=== PATIENT | female | born 1955 | race Caucasian/White ===

== ENCOUNTER 2019-12-02 21:40 | Inpatient (IN) | payer MEDICAID ==
[~2019-12-02] VITALS: Ht 162.6 cm; Wt 116.0 kg
[~2019-12-02 21:40] MED LIST: AMIT100T2 OR; CILO100T OR; FLUO20CA19 OR; GABA300C10 OR; HYDR25TA4 OR; INCIVEK PO; METF-490 OR; NOR10T GT; OMEP5TAB OR; SEE MED LIST; [UNRECOGNIZED DRUG - CODE] OR; [UNRECOGNIZED DRUG - OTHER]
[2019-12-02] MEDS ORDERED: ACETAMINOPHEN 650 mg PER 20 mL UD PO ONE (22:15)
[2019-12-02 22:53] LABS: Basophils # (auto) 0 10 ^3/uL (0-0.2); Eosinophils # (auto) 0 10 ^3/uL (0-0.8); Eosinophils % (auto) 0.1 % (0.0-7.0); Neutrophils # (auto) 8.8 10 ^3/uL (1.6-8.6)
[2019-12-02 22:56] LABS: Basophils % (auto) 0.1 % (0.0-2.0); Hematocrit 38.9 % (36.0-46.0); Hemoglobin 13.3 g/dL (12.2-16.2); Lymphocytes # (auto) 0.7 10 ^3/uL (0.4-5.4); Lymphocytes % (auto) 6.9 % (10.0-50.0); Mean Corpuscular Hemoglobin 29.1 pg (28.0-32.0); Mean Corpuscular Hgb Conc. 34.3 g/dL (32.0-36.0); Mean Corpuscular Volume 84.9 fL (80.0-100.0); Monocytes # (auto) 0.7 10 ^3/uL (0-1.3); Monocytes % (auto) 6.4 % (0.0-12.0); Neutrophils % (auto) 86.5 % (37.0-80.0); Nucleated Red Blood Cells % 1.1 %; Platelet Count (auto) 49 10^3/uL (140-450); Red Blood Cells 4.59 10^6/uL (4.0-5.20); White Blood Cell 10.1 10^3/uL (4.4-10.8)
[2019-12-02 23:09] LABS: INR 1.31 (0.9-1.15); Partial Thromboplastin Time 27.9 sec (23.64-32.05)
[2019-12-02 23:13] LABS: Albumin 3.1 g/dL (3.4-5.0); Anion Gap 9 (5-15); Blood Urea Nitrogen 19 mg/dL (7-18); Calcium 8.4 mg/dL (8.5-10.1); Carbon Dioxide 21 mmol/L (21-32); Chloride 103 mmol/L (98-107); Glucose 187 mg/dL (74-106); Magnesium 1.3 mg/dL (1.6-2.6); Potassium 3.8 mmol/L (3.5-5.1); Sodium 133 mmol/L (136-145)
[2019-12-02 23:15] LABS: Alanine Aminotransferase 16 U/L (13-56); Aspartate Aminotransferase 27 U/L (15-37); BUN/Creatinine Ratio 15.8; GFR African American 58 mL/min; GFR Non-African American 48 mL/min
[2019-12-02 23:16] LABS: Lactic Acid w/Reflex 2.6 mmol/L (0.4-2.0)
[2019-12-02 23:20] LABS: Alkaline Phosphatase 112 U/L (45-117); Bilirubin, Total 4.2 mg/dL (0.2-1.0); Total Protein 7.7 g/dL (6.4-8.2)
[2019-12-02 23:23] LABS: Blood Alcohol < 3.0 mg/dL (0-5)
[2019-12-03] MEDS ORDERED: SODIUM CHLORIDE 0.9% 1,000 ML IV SCH (03:01)
[2019-12-03] MEDS ORDERED: MORPHINE SULF INJ 2 MG/ML SYRINGE 1ML IV PRN (03:15)
[2019-12-03] MEDS ORDERED: NITROGLYCERIN 0.4 MG SL TAB SL PRN (03:15)
[2019-12-03] MEDS ORDERED: ACETAMINOPHEN 325 MG TAB PO PRN (03:15)
[2019-12-03] MEDS ORDERED: ONDANSETRON HCL 4 MG/2 ML VIAL IV PRN (03:15)
[2019-12-03] MEDS ORDERED: DOCUSATE SOD 100 MG CAP PO PRN (03:15)
[2019-12-03] MEDS ORDERED: DEXTROSE (50%) 50ML SYRG IV PRN (03:15)
[2019-12-03] MEDS ORDERED: ACETAMINOPHEN 500 MG TAB PO PRN (03:15)
[2019-12-03 03:18] LABS: Urine Bacteria MANY /hpf (None Seen); Urine Blood 2+ /uL (Negative); Urine Specific Gravity 1.019 (1.001-1.035); Urine WBC 1263 /hpf (0 - 5); Urine WBC Clumps PRESENT /hpf (None Seen)
[2019-12-03 03:29] LABS: Alcohol, Urine < 3.0 mg/dL (0-10); Amphetamine Screen, Urine NEGATIVE (NEGATIVE); Barbiturate Scree,Urine NEGATIVE (NEGATIVE); Benzodiazephine Screen, Urine NEGATIVE (NEGATIVE); Cannabinoid Screen, Urine NEGATIVE (NEGATIVE); Cocaine Screen, Urine NEGATIVE (NEGATIVE); Opiate Scree,Urine NEGATIVE (NEGATIVE); Phencyclidine Screen, Urine NEGATIVE (NEGATIVE)
[2019-12-03] MEDS: InsuLIN REG 1unit/0.01ml Soln (100units/ml) SC SCH ×4 (04:23→17:52)
[2019-12-03] MEDS: ACCU-CHEK COMFORT CURVE STRIP VI SCH ×4 (04:23→17:52)
[2019-12-03] MEDS ORDERED: ALBUTEROL SULF HFA 90MCG INH 200DOSE IN SCH ×2 (06:00)
[2019-12-03 06:56] LABS: Basophils # (auto) 0 10 ^3/uL (0-0.2); Eosinophils # (auto) 0 10 ^3/uL (0-0.8); Hematocrit 39.6 % (36.0-46.0); Hemoglobin 13.5 g/dL (12.2-16.2); Lymphocytes # (auto) 0.6 10 ^3/uL (0.4-5.4); Mean Corpuscular Hemoglobin 28.9 pg (28.0-32.0)
[2019-12-03 06:59] LABS: Basophils % (auto) 0.3 % (0.0-2.0); Eosinophils % (auto) 0.3 % (0.0-7.0); Lymphocytes % (auto) 7.7 % (10.0-50.0); Monocytes # (auto) 0.7 10 ^3/uL (0-1.3); Monocytes % (auto) 8.2 % (0.0-12.0); Neutrophils # (auto) 6.8 10 ^3/uL (1.6-8.6); Neutrophils % (auto) 83.5 % (37.0-80.0); Nucleated Red Blood Cells % 0.6 %; Platelet Count (auto) 39 10^3/uL (140-450); Red Blood Cells 4.66 10^6/uL (4.0-5.20); Red Cell Distribution Width 16.5 % (11.8-14.3); White Blood Cell 8.1 10^3/uL (4.4-10.8)
[2019-12-03 07:17] LABS: BUN/Creatinine Ratio 20.7; Calcium 8.4 mg/dL (8.5-10.1); Magnesium 1.7 mg/dL (1.6-2.6); Potassium 3.7 mmol/L (3.5-5.1)
[2019-12-03 08:43] VITALS: BP 107/66
[2019-12-03] MEDS ORDERED: ENOXAPARIN SOD 40 MG/0.4 ML SYRINGE SC SCH (10:00)
[2019-12-03] MEDS ORDERED: ASCORBIC ACID 1,000 MG TAB PO SCH (10:00)
[2019-12-03] MEDS ORDERED: ZINC SULFATE 220mg CAP or TAB PO SCH (10:00)
[2019-12-03] MEDS: DOXYCYCLINE 100 MG TAB/CAP PO SCH ×2 (10:31→21:37)
[2019-12-03] MEDS: CHOLECALCIFEROL (VITD3) 1,000IU=25mCg TAB PO SCH (10:31)
[2019-12-03 11:00] VITALS: BP 146/94
--- NOTE | 2019-12-03 11:00 | NUR ---
Telemetry admit from [facility] ROB[facility] admitted to Telemetry unit after SBAR received. Patient oriented to CAROLYNE HUBBARD, RN primary RN, unit, room, bed, and unit policies regarding patient care and visiting hours. Patient now on continuous telemetry monitoring, tele box # 17 and telemetry reading on arrival to unit is SR. Patient placed on bedside oxygen, weighed by bedscale and encouraged to call if they need something. All questions and concerns addressed, patient verbalized understanding.
[2019-12-03] MEDS ORDERED: cefTRIAXone 1GM/50ML D5W 50 ML IV ONE (11:30)
[2019-12-03 12:00] VITALS: BP 146/94
--- NOTE | 2019-12-03 15:58 | NUR ---
Report given to Nelda HARRIS. Patient transferred to room 212b at this time. Patient covid results negative. No distress, sob, or pain noted at time of departure.
--- NOTE | 2019-12-03 16:08 | NUR ---
Patient received from COVID unit Assumed care of patient, awake and alert. No S/S of distress/SOB or pain. Bed is set in lowest locked position with side rails up x 2 for safety and call light is within reach. Snyder catheter is in place hung below bladder and is draining dark straw colored fluid into bag.
[2019-12-03 16:50] VITALS: BP_SYST 128; BP_SYST 141; BP_DIAS 66; BP_DIAS 79
--- NOTE | 2019-12-03 19:53 | NUR ---
1946. lab call. santa. blood culture grew gram positive rods. call placed to hospitalist speech therapist early intervention.
--- NOTE | 2019-12-03 19:57 | NUR ---
Hospitalist called back. Noted patient is currently on Rocephin and vibramicin.. Noted these will provide adequate coverage for the Gram Negative Rods on Blood Culture.
[2019-12-03] MEDS: cefTRIAXone 1GM/50ML D5W 50 ML IV SCH (20:56)
[2019-12-03 22:00] VITALS: BP 98/58
[2019-12-04] MEDS: ACCU-CHEK COMFORT CURVE STRIP VI SCH ×4 (00:03→17:51)
[2019-12-04] MEDS: InsuLIN REG 1unit/0.01ml Soln (100units/ml) SC SCH ×4 (00:06→17:51)
--- NOTE | 2019-12-04 00:31 | NUR ---
1930. PATIENT SEEN ON HER BED. APPEARS CONFUSED AND DISORIENTED. SKIN IS INTACT. WELL GROOMED.
[2019-12-04 05:37] LABS: Basophils # (auto) 0 10 ^3/uL (0-0.2); Basophils % (auto) 0.4 % (0.0-2.0); Eosinophils # (auto) 0.1 10 ^3/uL (0-0.8); Eosinophils % (auto) 1.2 % (0.0-7.0); Hematocrit 35.1 % (36.0-46.0); Lymphocytes # (auto) 0.9 10 ^3/uL (0.4-5.4); Lymphocytes % (auto) 14.4 % (10.0-50.0); Mean Corpuscular Hemoglobin 28.8 pg (28.0-32.0); Mean Corpuscular Hgb Conc. 34.2 g/dL (32.0-36.0); Mean Corpuscular Volume 84.4 fL (80.0-100.0); Monocytes # (auto) 0.7 10 ^3/uL (0-1.3); Monocytes % (auto) 12.2 % (0.0-12.0); Neutrophils # (auto) 4.4 10 ^3/uL (1.6-8.6); Neutrophils % (auto) 71.8 % (37.0-80.0); Nucleated Red Blood Cells % 0.4 %; Platelet Count (auto) 40 10^3/uL (140-450); Red Blood Cells 4.16 10^6/uL (4.0-5.20); Red Cell Distribution Width 16.7 % (11.8-14.3); White Blood Cell 6.1 10^3/uL (4.4-10.8)
[2019-12-04 05:45] VITALS: BP 96/58
[2019-12-04 05:57] LABS: Calcium 8.3 mg/dL (8.5-10.1); Potassium 3.4 mmol/L (3.5-5.1)
[2019-12-04 06:02] LABS: Albumin 2.8 g/dL (3.4-5.0); BUN/Creatinine Ratio 24.5; Bilirubin, Total 2.6 mg/dL (0.2-1.0); Total Protein 6.9 g/dL (6.4-8.2)
[2019-12-04] MEDS ORDERED: POTASSIUM CHL 20 Meq TABLET PO ONE (08:00)
[2019-12-04] MEDS ORDERED: MAGNESIUM SULFATE 1GM/100ML 100 ML IV ONE (08:00)
[2019-12-04 08:44] VITALS: BP 105/62
[2019-12-04] MEDS: cefTRIAXone 1GM/50ML D5W 50 ML IV SCH (08:59)
[2019-12-04] MEDS: METOPROLOL TARTRATE 25 MG TAB PO SCH ×2 (09:00→21:46)
[2019-12-04] MEDS: DOXYCYCLINE 100 MG TAB/CAP PO SCH (09:00)
[2019-12-04] MEDS: CHOLECALCIFEROL (VITD3) 1,000IU=25mCg TAB PO SCH (09:01)
[2019-12-04 12:51] VITALS: BP 103/59
--- NOTE | 2019-12-04 13:30 | NUR ---
Dr Mauricio at bedside.
[2019-12-04] MEDS ORDERED: PIPERACILLIN-TAZOB 3.375GM 100 ML IV SCH (14:15)
[2019-12-04] MEDS ORDERED: MEROPENEM 1GM IVPB 100 ML IV ONE (14:30)
--- NOTE | 2019-12-04 16:19 | NUR ---
ss consult Per ss consult requesting advanced directive. RN has provided patient with advanced directive. Addendum: 12/04/19 at 1620 by Freya ELI Amended: Links added.
--- NOTE | 2019-12-04 16:21 | NUR ---
PROVIDED PATIENT WITH ADVANCE DIRECTIVE.
[2019-12-04 17:00] VITALS: BP 104/63
[2019-12-04] MEDS: FUROSEMIDE 20 MG/2 ML VIAL IV SCH (17:50)
--- NOTE | 2019-12-04 19:14 | NUR ---
Patient alert and oriented x 4, patient resps even and unlabored, patient on o2 3L NC no complaints care endorsed to night nurse.
--- NOTE | 2019-12-04 20:06 | NUR ---
1900. REPORT OBTAINED ON PATIENT. PATIENT SEEN. AWAKE AND ALERT. DENIES PAIN. ALERT AND ORIENTED X 4. CLEAN CATH URINE SENT TO THE LAB.
[2019-12-04] MEDS: MEROPENEM 1GM IVPB 100 ML IV SCH (21:44)
[2019-12-04] MEDS: MORPHINE SULF INJ 2 MG/ML SYRINGE 1ML IV PRN (21:45)
[2019-12-04] MEDS: APIXABAN 2.5 MG TAB PO SCH (21:46)
[2019-12-04 22:00] VITALS: BP 105/62
[2019-12-05] MEDS: InsuLIN REG 1unit/0.01ml Soln (100units/ml) SC SCH ×5 (00:06→23:52)
[2019-12-05] MEDS: FUROSEMIDE 20 MG/2 ML VIAL IV SCH ×2 (05:38→17:51)
[2019-12-05] MEDS: ACCU-CHEK COMFORT CURVE STRIP VI SCH ×5 (05:38→23:49)
[2019-12-05 05:48] VITALS: BP 111/63
[2019-12-05 07:11] LABS: Urine Bacteria FEW /hpf (None Seen); Urine Blood 2+ /uL (Negative); Urine Hyaline Cast FEW /lpf (0 - 2); Urine Mucus FEW (None Seen); Urine Specific Gravity 1.012 (1.001-1.035); Urine WBC 25 /hpf (0 - 5)
[2019-12-05] MEDS ORDERED: ADENOSINE 95 MG in GIVE UN-DILUTED 0 ML IV STA (08:16)
[2019-12-05 09:00] VITALS: BP 99/55
--- NOTE | 2019-12-05 10:00 | NUR ---
Patient taken down to stress test.
[2019-12-05] MEDS: APIXABAN 2.5 MG TAB PO SCH (11:09)
[2019-12-05] MEDS: MEROPENEM 1GM IVPB 100 ML IV SCH (11:09)
[2019-12-05] MEDS: CHOLECALCIFEROL (VITD3) 1,000IU=25mCg TAB PO SCH (11:09)
[2019-12-05] MEDS: METOPROLOL TARTRATE 25 MG TAB PO SCH (11:10)
--- NOTE | 2019-12-05 11:15 | NUR ---
Patient back from stress test.
[2019-12-05 12:22] VITALS: BP 97/52
--- NOTE | 2019-12-05 14:00 | NUR ---
PT IS REQUESTING THAT P.T. EVALUATION BE DONE TOMORROW.
[2019-12-05 17:00] VITALS: BP 96/49
--- NOTE | 2019-12-05 17:51 | NUR ---
patient BP too low for lasix. Patient is not symptomatic, resting in bed.
[2019-12-05] MEDS: cefTRIAXone 1GM/50ML D5W 50 ML IV SCH (20:58)
[2019-12-05 22:00] VITALS: BP 98/55
[2019-12-05] MEDS: HYDROcodone-ACET 5/325MG TAB PO PRN (23:44)
[2019-12-06 05:00] VITALS: BP 94/56
--- NOTE | 2019-12-06 05:17 | NUR ---
PATIENT HAS REMAINED STABLE DID NOT WANT TO WALK OR SIT OUT OF BED. WILL TRY AND GET HER ON THE CHAIR LATER.
[2019-12-06] MEDS: ACCU-CHEK COMFORT CURVE STRIP VI SCH ×3 (06:17→18:08)
[2019-12-06] MEDS: InsuLIN REG 1unit/0.01ml Soln (100units/ml) SC SCH ×3 (06:21→18:11)
[2019-12-06 06:45] LABS: Basophils # (auto) 0 10 ^3/uL (0-0.2); Eosinophils # (auto) 0.2 10 ^3/uL (0-0.8); Hemoglobin 11.7 g/dL (12.2-16.2); Monocytes # (auto) 0.6 10 ^3/uL (0-1.3); Neutrophils # (auto) 3.8 10 ^3/uL (1.6-8.6); Nucleated Red Blood Cells % 0.4 %
[2019-12-06 06:48] LABS: Basophils % (auto) 0.4 % (0.0-2.0); Eosinophils % (auto) 2.6 % (0.0-7.0); Hematocrit 33.7 % (36.0-46.0); Lymphocytes # (auto) 1.3 10 ^3/uL (0.4-5.4); Lymphocytes % (auto) 22.6 % (10.0-50.0); Mean Corpuscular Hgb Conc. 34.6 g/dL (32.0-36.0); Mean Corpuscular Volume 83.9 fL (80.0-100.0); Monocytes % (auto) 9.8 % (0.0-12.0); Neutrophils % (auto) 64.6 % (37.0-80.0); Platelet Count (auto) 49 10^3/uL (140-450); Red Blood Cells 4.02 10^6/uL (4.0-5.20); White Blood Cell 5.9 10^3/uL (4.4-10.8)
[2019-12-06 07:01] LABS: Calcium 8.4 mg/dL (8.5-10.1); Potassium 3.8 mmol/L (3.5-5.1)
[2019-12-06 07:03] LABS: BUN/Creatinine Ratio 37.1
[2019-12-06] MEDS ORDERED: PANTOPRAZOLE 40 MG/10 ML VIAL INJ IV ONE (08:30)
[2019-12-06 09:00] VITALS: BP 96/55
[2019-12-06] MEDS: CHOLECALCIFEROL (VITD3) 1,000IU=25mCg TAB PO SCH (09:07)
[2019-12-06] MEDS: cefTRIAXone 1GM/50ML D5W 50 ML IV SCH ×2 (09:07→21:30)
--- NOTE | 2019-12-06 11:20 | NUR ---
1120 12/06/19 Faxed Home IV ABx order, face sheet, progress notes, labs, meds to [facility] and [facility].
--- NOTE | 2019-12-06 12:26 | NUR ---
Midline Placement: Patient educated on need for midline placement. All risks and benefits explained and all questions and concerns addresses prior to procedure. 18g/10cm midline inserted via left cephalic vein using Ultrasound. Sterile technique utilized. Blood return obtained from lumen and flushed easily with NS using proper technique. Midline secured with saline lock; biodisc and occlusive dressing applied. Primary RN notified. Midline lot #[id number]
--- NOTE | 2019-12-06 12:35 | NUR ---
Nutrition Assessment Notes Please refer to link for full assessment notes. Est Energy needs: 4076-9019 kcals (12-15 kcal/kgBW) Est Protein needs: 109-136 gms/day (2.0-2.5 gm/kgIBW) Will continue to monitor and reassess prn. Addendum: 12/06/19 at [address] Amended: Links added.
[2019-12-06] MEDS: HYDROcodone-ACET 5/325MG TAB PO PRN (12:36)
--- NOTE | 2019-12-06 12:36 | NUR ---
Pain Patient complained of pain 6/10 to her back. Medicated with [place] as ordered. Will reassess as per protocol.
[2019-12-06 13:00] VITALS: BP 109/60
--- NOTE | 2019-12-06 14:22 | NUR ---
Assessment Patient is a 64-year-old female who is alert and oriented. Prior to admission patient lived home with family and functioned with assistance. Per patient her family helps her with her ADLs. Patient informed me she has a walker, cane, shower, bedside commode and wheelchair for home use. Per patient she will return to her prior living arrangement post discharge and family will transport her home. Patient informed me her daughter Suly is her caregiver and [facility]. Advised patient there is a social service consult for home health IV abx until November,. Patient informed me her family will assist with the IV abx. Informed patient clinical information will be faxed to [facility]. Informed patient AICHA Campbell will complete IV abx. Informed patient she has the right to participate in all discharge planning. Patient verbalized understanding and agreed to discharge plan. Faxed clinical information to [facility] [facility]. Per Cait with [facility] [phone] patient has been accepted and service to start within 24hrs upon d/c day. Obtain authorization from [facility] [id number]. Addendum: 12/06/19 at 1423 by JIN ELI Amended: Links added.
[2019-12-06 16:45] VITALS: BP 107/61
--- NOTE | 2019-12-06 19:30 | NUR ---
Opening Shift Note Assumed care of patient, awake and alert. No S/S of distress/SOB or pain. Instructed on POC and to be NPO after MN. For C tomorrow. Patient verbalized understanding. Instructed to call for assist PRN, safety precaution in place, call light within reach, will continue to monitor for changes Q1hr and PRN.
[2019-12-06] MEDS: PANTOPRAZOLE 40 MG/10 ML VIAL INJ IV SCH (21:30)
[2019-12-06 22:00] VITALS: BP 98/50
[2019-12-07] MEDS: ACCU-CHEK COMFORT CURVE STRIP VI SCH ×4 (00:28→17:38)
[2019-12-07] MEDS: InsuLIN REG 1unit/0.01ml Soln (100units/ml) SC SCH ×4 (00:29→17:38)
--- NOTE | 2019-12-07 02:37 | NUR ---
ROUNDING Patient sleeping at this time, respirations even and unlabored, will continue to monitor
[2019-12-07 05:00] VITALS: BP 86/44
[2019-12-07 05:39] LABS: Basophils # (auto) 0 10 ^3/uL (0-0.2); Eosinophils # (auto) 0.1 10 ^3/uL (0-0.8); Eosinophils % (auto) 2.8 % (0.0-7.0); Hematocrit 31.7 % (36.0-46.0); Hemoglobin 10.8 g/dL (12.2-16.2); Lymphocytes # (auto) 1.1 10 ^3/uL (0.4-5.4); Mean Corpuscular Hemoglobin 28.8 pg (28.0-32.0); Mean Corpuscular Volume 84.8 fL (80.0-100.0); Monocytes # (auto) 0.4 10 ^3/uL (0-1.3); Monocytes % (auto) 8.8 % (0.0-12.0); Neutrophils # (auto) 2.9 10 ^3/uL (1.6-8.6); Neutrophils % (auto) 63.4 % (37.0-80.0); Nucleated Red Blood Cells % 0.3 %; Platelet Count (auto) 61 10^3/uL (140-450); Red Blood Cells 3.75 10^6/uL (4.0-5.20); White Blood Cell 4.6 10^3/uL (4.4-10.8)
[2019-12-07 05:56] LABS: Albumin 2.6 g/dL (3.4-5.0); Calcium 8.6 mg/dL (8.5-10.1)
[2019-12-07 05:59] LABS: BUN/Creatinine Ratio 43.3; Bilirubin, Total 1.6 mg/dL (0.2-1.0); Total Protein 6.3 g/dL (6.4-8.2)
[2019-12-07 06:01] LABS: INR 1.28 (0.9-1.15); Partial Thromboplastin Time 28.2 sec (23.64-32.05)
[2019-12-07 06:48] VITALS: BP 98/43
[2019-12-07] MEDS: cefTRIAXone 1GM/50ML D5W 50 ML IV SCH ×2 (08:35→21:51)
--- NOTE | 2019-12-07 08:55 | NUR ---
Off Unit Patient taken to analytical laboratory technician for procedure.
[2019-12-07 09:08] VITALS: BP 87/45
[2019-12-07] MEDS ORDERED: IOHEXOL 350 MG/ML 100ML IJ ONE (09:31)
[2019-12-07] MEDS ORDERED: LIDOCAINE 2%HCL (LOCAL ANESTH.) INJ 20ML MDV ONE (09:31)
--- NOTE | 2019-12-07 09:45 | NUR ---
Attempted PT treatment, pt is down in labels molder.
[2019-12-07] MEDS ORDERED: HEPARIN SODIUM (PORCINE) 5000 UNITS/ML 1ML VIAL ONE (09:46)
[2019-12-07] MEDS ORDERED: SODIUM CHL 0.9% 0 ML ONE (09:46)
[2019-12-07] MEDS ORDERED: MIDAZOLAM HCL 1MG/1ML-2 ML VIAL ONE (09:46)
[2019-12-07] MEDS ORDERED: fentaNYL CITRATE 100 MCG/2 ML VL ONE (09:46)
[2019-12-07] MEDS ORDERED: ANGIOMAX 250 MG VIAL IV ONE (09:46)
[2019-12-07] MEDS ORDERED: VERAPAMIL 2.5MG/ML INJ 2ML VIAL IV ONE (09:46)
[2019-12-07] MEDS: PANTOPRAZOLE 40 MG/10 ML VIAL INJ IV SCH ×2 (10:00→21:51)
--- NOTE | 2019-12-07 12:35 | NUR ---
On Unit Patient returned to unit after having LHC done. Patient is awake but drowsy. Vasc band to left wrist. Bed alarm on for safety. Call light placed within reach and patient encouraged to call for assistance.
[2019-12-07 13:00] VITALS: BP 99/62
[2019-12-07] MEDS: CHOLECALCIFEROL (VITD3) 1,000IU=25mCg TAB PO SCH (13:10)
[2019-12-07] MEDS ORDERED: OCTREOTIDE ACETATE 100 MCG in SODIUM CHL 0.9% 50 ML IV ONE (13:15)
[2019-12-07] MEDS ORDERED: OCTREOTIDE ACETATE 500 MCG in SODIUM CHL 0.9% 99 ML IV SCH (13:15)
--- NOTE | 2019-12-07 13:45 | NUR ---
Vasc Band Vasc band removed as per protocol. Left wrist dressed with gauze and Tegaderm.
--- NOTE | 2019-12-07 14:50 | NUR ---
GI consult Dr. Walker rounded on patient.
--- NOTE | 2019-12-07 15:00 | NUR ---
Hospitalist Rounded Dr. Ortez rounded on patient.
--- NOTE | 2019-12-07 15:01 | NUR ---
Sandostatin 100 mcg to be held as per hospitalist.
--- NOTE | 2019-12-07 15:05 | NUR ---
EGD and Colonoscopy Patient is unsure of where procedures was done. Contacted her daughter Vidya and she think it was [facility] but she will check for the report and follow up. Vidya also stated that patient only did EGD and not colonoscopy.
--- NOTE | 2019-12-07 16:12 | NUR ---
Copy of EGD report received from daughter and placed in chart. GI Dr. Walker was notified.
[2019-12-07 17:13] VITALS: BP 104/57
--- NOTE | 2019-12-07 19:40 | NUR ---
Opening Shift Note Assumed care of patient, awake and alert. No S/S of distress/SOB or pain. Instructed on POC and to call for assist PRN, patient verbalized understanding. safety precaution in place, call light within reach, will continue to monitor for changes Q1hr and PRN.
[2019-12-07] MEDS: MORPHINE SULF INJ 2 MG/ML SYRINGE 1ML IV PRN (22:01)
[2019-12-07 22:57] VITALS: BP 133/74
[2019-12-08] MEDS: ACCU-CHEK COMFORT CURVE STRIP VI SCH ×4 (00:25→18:23)
[2019-12-08] MEDS: InsuLIN REG 1unit/0.01ml Soln (100units/ml) SC SCH ×4 (00:26→18:22)
[2019-12-08 05:38] VITALS: BP 116/77
[2019-12-08 08:15] LABS: Basophils # (auto) 0 10 ^3/uL (0-0.2); Basophils % (auto) 0.4 % (0.0-2.0); Eosinophils # (auto) 0.1 10 ^3/uL (0-0.8); Lymphocytes # (auto) 1.2 10 ^3/uL (0.4-5.4); Red Cell Distribution Width 17.1 % (11.8-14.3)
[2019-12-08 08:17] LABS: Eosinophils % (auto) 1.6 % (0.0-7.0); Hematocrit 33.2 % (36.0-46.0); Hemoglobin 11.5 g/dL (12.2-16.2); Lymphocytes % (auto) 20.6 % (10.0-50.0); Mean Corpuscular Hemoglobin 29.5 pg (28.0-32.0); Mean Corpuscular Hgb Conc. 34.5 g/dL (32.0-36.0); Mean Corpuscular Volume 85.4 fL (80.0-100.0); Monocytes # (auto) 0.4 10 ^3/uL (0-1.3); Monocytes % (auto) 7.2 % (0.0-12.0); Neutrophils # (auto) 4.2 10 ^3/uL (1.6-8.6); Neutrophils % (auto) 70.2 % (37.0-80.0); Nucleated Red Blood Cells % 0.2 %; Platelet Count (auto) 59 10^3/uL (140-450); Red Blood Cells 3.88 10^6/uL (4.0-5.20)
[2019-12-08 08:35] LABS: Calcium 8.3 mg/dL (8.5-10.1); Potassium 4.1 mmol/L (3.5-5.1)
[2019-12-08 08:37] LABS: BUN/Creatinine Ratio 31.6
[2019-12-08] MEDS: MORPHINE SULF INJ 2 MG/ML SYRINGE 1ML IV PRN (08:55)
[2019-12-08 08:56] VITALS: BP 126/68
[2019-12-08] MEDS: PANTOPRAZOLE 40 MG/10 ML VIAL INJ IV SCH ×2 (09:09→21:49)
[2019-12-08] MEDS: CHOLECALCIFEROL (VITD3) 1,000IU=25mCg TAB PO SCH (09:10)
[2019-12-08] MEDS: cefTRIAXone 1GM/50ML D5W 50 ML IV SCH ×2 (09:10→21:49)
--- NOTE | 2019-12-08 11:20 | NUR ---
PT PT DECLINED PHYSICAL THERAPY THIS MORNING. Signed: 12/08/19 at 1121 by ELENA MIRANDA PTT <Co-Signature Required> Co-Signed: 12/08/19 at 1121 by Jer Silva PT Addendum: 12/08/19 at 1121 by ELENA MIRANDA PTT Amended: Links added.
--- NOTE | 2019-12-08 11:49 | NUR ---
[facility] CALLED NOTIFIED THEM THAT PATIENT WILL NOT BE DISCHARGED UNTIL AFTER THE WEEKEND.
[2019-12-08 13:20] VITALS: BP 124/69
[2019-12-08 17:04] VITALS: BP 132/77
--- NOTE | 2019-12-08 19:20 | NUR ---
RECEIVED PATIENT FROM DAY SHIFT RN. PATIENT RESTING IN BED. NO S/S OF DISTRESS NOTED. DENIED PAIN AT THIS TIME. BORJA CATH IN PLACE DRAINING TO GRAVITY. POC INSTRUCTED AND ENCOURAGED PATIENT TO CALL FOR BRINE TANK OPERATOR IF NEEDED. BED IN LOWEST POSITION WITH SIDE RAILS UP X 2. CALL MARTIN WITHIN REACH. ALARM ON. CONTINUE TO MONITOR FOR CHANGES Q1H AND PRN.
--- NOTE | 2019-12-08 20:35 | NUR ---
PATIENT' DAUGHTER MARIA D CALLED. PASSWORD VERIFIED. PATIENT CURRENT CONDITION UPDATED. MARIA D REQUESTED [facility]DS TO CALL HER EVERY TIME WHEN THEY COME TO SEE PATIENT AND UPDATE TO HER. NOTES MADE IN THE FRONT OF PATIENT'S CHART AND WILL PASS IT ON TO DAY SHIFT RN TO REMIND [facility]DS. CONTINUE TO MONITOR.
[2019-12-08 22:00] VITALS: BP 97/54
[2019-12-09] MEDS: InsuLIN REG 1unit/0.01ml Soln (100units/ml) SC SCH ×5 (00:20→23:46)
[2019-12-09] MEDS: ACCU-CHEK COMFORT CURVE STRIP VI SCH ×5 (00:21→23:46)
--- NOTE | 2019-12-09 00:25 | NUR ---
ACCU-CHECK, BS 162. INSULIN GIVEN ORDERED. CONTINUE TO MONITOR.
--- NOTE | 2019-12-09 02:44 | NUR ---
PATIENT SLEEPING. NO S/S OF DISTRESS AND PAIN NOTED. CONTINUE TO MONITOR.
[2019-12-09 05:00] VITALS: BP 95/57
--- NOTE | 2019-12-09 06:20 | NUR ---
ACCU-CHECK, BS 160. INSULIN GIVEN ORDERED. CONTINUE TO MONITOR.
--- NOTE | 2019-12-09 07:00 | NUR ---
Opening Shift Note Received report on the patient. Sleeping lying in bed. Patient shows no signs of distress at this time. Discussed the plan of care with the patient. Bed in lowest position, side rails up x2, and the call light is within reach.
[2019-12-09] MEDS: cefTRIAXone 1GM/50ML D5W 50 ML IV SCH ×2 (08:43→21:35)
[2019-12-09 09:00] VITALS: BP 100/61
--- NOTE | 2019-12-09 10:08 | NUR ---
Dr Aviles at bedside. No new orders received.
[2019-12-09] MEDS: PANTOPRAZOLE 40 MG/10 ML VIAL INJ IV SCH ×2 (10:11→21:35)
[2019-12-09] MEDS: CHOLECALCIFEROL (VITD3) 1,000IU=25mCg TAB PO SCH (10:12)
[2019-12-09 12:20] LABS: Basophils # (auto) 0 10 ^3/uL (0-0.2); Basophils % (auto) 0.4 % (0.0-2.0); Eosinophils # (auto) 0.1 10 ^3/uL (0-0.8); Hemoglobin 10.9 g/dL (12.2-16.2); Lymphocytes # (auto) 0.7 10 ^3/uL (0.4-5.4); Monocytes # (auto) 0.2 10 ^3/uL (0-1.3); Neutrophils # (auto) 2.8 10 ^3/uL (1.6-8.6); Nucleated Red Blood Cells % 0.1 %; White Blood Cell 3.8 10^3/uL (4.4-10.8)
[2019-12-09 12:22] LABS: Eosinophils % (auto) 1.7 % (0.0-7.0); Hematocrit 32.1 % (36.0-46.0); Lymphocytes % (auto) 18.9 % (10.0-50.0); Mean Corpuscular Hgb Conc. 33.9 g/dL (32.0-36.0); Mean Corpuscular Volume 85.7 fL (80.0-100.0); Platelet Count (auto) 50 10^3/uL (140-450); Red Blood Cells 3.75 10^6/uL (4.0-5.20)
[2019-12-09 12:38] LABS: INR 1.25 (0.9-1.15); Partial Thromboplastin Time 28.2 sec (23.64-32.05)
[2019-12-09 13:00] VITALS: BP 105/56
[2019-12-09 16:57] VITALS: BP 108/65
--- NOTE | 2019-12-09 19:45 | NUR ---
RECEIVED PATIENT FROM DAY SHIFT RN. PATIENT RESTING IN BED. NO S/S OF DISTRESS NOTED. DENIED PAIN AT THIS TIME. BORJA CATH IN PLACE DRAINING TO GRAVITY. REINFORCED PATIENT NPO AFTER MIDNIGHT FOR PROCEDURE TOMORROW. PATIENT VERBALIZED UNDERSTANDING. PATIENT MORE ALERT TONIGHT, REORIENTED PATIENT TIME. POC INSTRUCTED AND ENCOURAGED PATIENT TO CALL FOR RDA IF NEEDED. BED IN LOWEST POSITION WITH SIDE RAILS UP X 2. CALL MARTIN WITHIN REACH. ALARM ON. CONTINUE TO MONITOR FOR CHANGES Q1H AND PRN.
[2019-12-09 22:27] VITALS: BP 95/65
--- NOTE | 2019-12-09 23:52 | NUR ---
ACCU-CHECK, BS 188. INSULIN GIVEN ORDERED. CONTINUE TO MONITOR.
--- NOTE | 2019-12-10 00:09 | NUR ---
REINFORCED NPO FROM NOW ON. WATER AND FOOD REMOVED FROM BEDSIDE. PATIENT VERBALIZED UNDERSTANDING. CONTINUE TO MONITOR,
--- NOTE | 2019-12-10 02:30 | NUR ---
PATIENT SLEEPING. NO S/S OF DISTRESS AND PAIN NOTED. CONTINUE TO MONITOR.
--- NOTE | 2019-12-10 04:36 | NUR ---
ASSISTED PATIENT TO BEDSIDE COMMODE AND HAD BM. PATIENT TOLERATED WELL. NO SOB AND DISTRESS NOTED. CONTINUE TO MONITOR.
[2019-12-10 05:15] VITALS: BP 95/55
[2019-12-10] MEDS: ACCU-CHEK COMFORT CURVE STRIP VI SCH ×3 (05:53→17:53)
[2019-12-10] MEDS: InsuLIN REG 1unit/0.01ml Soln (100units/ml) SC SCH ×3 (05:53→17:54)
--- NOTE | 2019-12-10 05:53 | NUR ---
ACCU-CHECK, BS 157. NO COVERAGE SINCE PATIENT IS NPO FOR PROCEDURE LATER TODAY. PATIENT UNDERSTOOD NPO NOW. CONTINUE TO MONITOR.
[2019-12-10 07:10] LABS: Basophils # (auto) 0 10 ^3/uL (0-0.2); Eosinophils # (auto) 0.1 10 ^3/uL (0-0.8); Lymphocytes # (auto) 0.8 10 ^3/uL (0.4-5.4); Monocytes # (auto) 0.3 10 ^3/uL (0-1.3); Platelet Count (auto) 52 10^3/uL (140-450); White Blood Cell 3.9 10^3/uL (4.4-10.8)
[2019-12-10 07:13] LABS: Basophils % (auto) 0.4 % (0.0-2.0); Eosinophils % (auto) 1.7 % (0.0-7.0); Hematocrit 32.4 % (36.0-46.0); Lymphocytes % (auto) 20.7 % (10.0-50.0); Mean Corpuscular Hemoglobin 29.5 pg (28.0-32.0); Mean Corpuscular Hgb Conc. 33.9 g/dL (32.0-36.0); Mean Corpuscular Volume 86.9 fL (80.0-100.0); Monocytes % (auto) 7.1 % (0.0-12.0); Neutrophils # (auto) 2.7 10 ^3/uL (1.6-8.6); Neutrophils % (auto) 70.1 % (37.0-80.0); Nucleated Red Blood Cells % 0.1 %; Red Blood Cells 3.73 10^6/uL (4.0-5.20); Red Cell Distribution Width 17.2 % (11.8-14.3)
[2019-12-10 07:22] LABS: INR 1.28 (0.9-1.15)
--- NOTE | 2019-12-10 07:30 | NUR ---
OPENING NOTE ASSUMED CARE OF PT. ALERT AND AWAKE. NO S/S OF SOB/DISTRESS NOTED. BED SET TO LOWEST POSITION/LOCKED. BEDSIDE RAILS UP X2. CALL LIGHT WITH IN REACH. INSTRUCTED PATIENT TO CALL FOR ASSISTANCE. UPDATED PT ON POC. PT VERBALIZED UNDERSTANDING. WILL CONTINUE TO MONITOR Q1HR AND PRN.
[2019-12-10 07:33] LABS: Albumin 2.7 g/dL (3.4-5.0); Calcium 8.3 mg/dL (8.5-10.1); Potassium 3.9 mmol/L (3.5-5.1)
[2019-12-10 07:38] LABS: BUN/Creatinine Ratio 17.2; Bilirubin, Total 1.7 mg/dL (0.2-1.0); Total Protein 6.6 g/dL (6.4-8.2)
[2019-12-10 09:00] VITALS: BP 130/66
[2019-12-10] MEDS ORDERED: NALOXONE HCL 0.4 MG/ML VIAL ONE (09:09)
[2019-12-10] MEDS ORDERED: FLUMAZENIL 0.1 MG/ML INJ 10ML MDV IV ONE (09:09)
[2019-12-10] MEDS ORDERED: SODIUM CHLORIDE LOCK 10 ML ONE (09:10)
[2019-12-10] MEDS ORDERED: diphenhdrAMINE HCL 50 MG/1 ML VL ONE (09:11)
[2019-12-10] MEDS ORDERED: LIDOCAINE VISCOUS 2% 15ML UD ONE (09:14)
[2019-12-10] MEDS: CHOLECALCIFEROL (VITD3) 1,000IU=25mCg TAB PO SCH (09:21)
[2019-12-10] MEDS: PANTOPRAZOLE 40 MG/10 ML VIAL INJ IV SCH (09:21)
[2019-12-10] MEDS: cefTRIAXone 1GM/50ML D5W 50 ML IV SCH ×2 (09:21→21:13)
[2019-12-10] MEDS: MIDAZOLAM HCL 5 MG/ML-1ML VIAL ONE ×2 (12:10→12:13)
[2019-12-10] MEDS: fentaNYL CITRATE 100 MCG/2 ML VL ONE ×2 (12:10→12:13)
--- NOTE | 2019-12-10 12:55 | NUR ---
BACK ON UNIT PATIENT BACK UNIT VIA BED FROM PACU. NO S/S OF SOB/DISTRESS NOTED. WILL CONTINUE TO MONITOR FOR CHANGES.
[2019-12-10 17:00] VITALS: BP 124/74
--- NOTE | 2019-12-10 19:35 | NUR ---
Opening Shift Note Assumed care of patient, awake and alert, AOX4. No S/S of distress/SOB or pain. Instructed on POC and to call for assist if using bathroom, will continue to monitor for changes.
[2019-12-10 20:00] VITALS: BP 123/70
[2019-12-10] MEDS: MORPHINE SULF INJ 2 MG/ML SYRINGE 1ML IV PRN (20:15)
--- NOTE | 2019-12-10 20:21 | NUR ---
Patient Complains of Pain Patient complains of generalized pain. Patient given pain medication as prescribed. Will continue to monitor.
[2019-12-10 22:00] VITALS: BP 123/70
[2019-12-11] MEDS: ACCU-CHEK COMFORT CURVE STRIP VI SCH ×4 (00:29→18:00)
[2019-12-11] MEDS: InsuLIN REG 1unit/0.01ml Soln (100units/ml) SC SCH ×4 (00:35→18:00)
[2019-12-11 05:00] VITALS: BP 136/72
--- NOTE | 2019-12-11 07:06 | NUR ---
Closing Note Report given to morning RN. Patient AOx4, patient safety precautions in place.
[2019-12-11 09:23] VITALS: BP 116/58
[2019-12-11] MEDS ORDERED: PANTOPRAZOLE 40 MG TAB PO SCH (10:00)
[2019-12-11] MEDS ORDERED: MAGNESIUM OXIDE 400 MG TAB PO ONE (10:00)
[2019-12-11] MEDS: cefTRIAXone 1GM/50ML D5W 50 ML IV SCH (10:15)
[2019-12-11] MEDS: CHOLECALCIFEROL (VITD3) 1,000IU=25mCg TAB PO SCH (10:16)
--- NOTE | 2019-12-11 11:37 | NUR ---
Nutrition Followup Note Wt 116.0 kg Pt was asleep during rounds this morning. Pt is s/p coronary angiogram. Pt intake is adequate aeb pt po intake of an avg of 81% per RN recorded meals 12/08-12/10. Will continue to monitor pt po intake, labs, skin. Est Energy needs: 9145-9775 kcals (14-18 kcal/kgBW) Est Protein needs: 55-71 gms/day (1-1.3gm/kgIBW) Will continue to monitor and reassess prn. Labs: Alb 2.7L, Ca 8.3L, Gluc 146H BM: 1 12/10 per RN doc Skin: BS 16 mod risk, full details in healthcare interpreter doc. PES: Obesity r/t caloric intake in excess of needs aeb pt is 213% of IBW and BMI is 43.9kg/m2 which is morbidly obese. Will continue to closely monitor pertinent labs, PO intake and skin status prn. Will followup in 3-5 days 1) Continue to closely monitor pt PO intake to meet at least 75% of meals 2) Refer pt to a RD for nutrition education upon D/C 3) Continue current plan of care Expected Outcomes/Goals: Pt appetite to meet at least 75% of meals Pt to see a RD for nutrition education after D/C Pt labs to improve
[2019-12-11 14:06] VITALS: BP 118/87
--- NOTE | 2019-12-11 15:20 | NUR ---
Snyder catheter dc'd Order to discontinue Snyder catheter. Snyder dc'd with clean technique following deflation of balloon. Patient tolerated well with no complaints of pain. Continue care.
--- NOTE | 2019-12-11 15:23 | NUR ---
D/C planning AICHA Baig informed me [facility] will deliver medication between 19:00-22:00 [facility]. Contact [facility] to informed them patient will be discharging home today.
[2019-12-11 16:42] VITALS: BP 112/52
--- NOTE | 2019-12-11 17:17 | NUR ---
TELE MONITOR TELE BOX # 29 WALKED DOWN TO ICU BY YUDITH HESS).
--- NOTE | 2019-12-11 17:20 | NUR ---
Discharge Discharge instructions given as ordered. Encourage to follow up with PMD as instructed. All questions and concerns addressed. Patient verbalized understanding. IV removed with catheter intact, pressure dressing applied. Telemetry unit #[id number] returned to ICU.
== END 2019-12-11 18:00 | disposition home health service (06) | DRG 720 ==
LOC: EDBD 21:40 → ER 21:43 → TELE 21:44 → TELE-EAST 12-03 11:00 → TELE-CENTR 12-03 16:45
PROVIDERS: ADMIT Hospitalist; ATTEND Internal Medicine Nephrology
PROC: 0T9B70Z Drainage of Bladder with Drainage Device, Via Natural or Artificial Opening (ICD-10-PCS; principal; 2019-12-03)
PROC: 4A023N7 Measurement of Cardiac Sampling and Pressure, Left Heart, Percutaneous Approach (ICD-10-PCS; 2019-12-07)
PROC: B2111ZZ Fluoroscopy of Multiple Coronary Arteries using Low Osmolar Contrast (ICD-10-PCS; 2019-12-07)
PROC: B2151ZZ Fluoroscopy of Left Heart using Low Osmolar Contrast (ICD-10-PCS; 2019-12-07)
PROC: 0DJ08ZZ Inspection of Upper Intestinal Tract, Via Natural or Artificial Opening Endoscopic (ICD-10-PCS; 2019-12-10)
DX: A41.51 Sepsis due to Escherichia coli [E. coli] (principal); N17.0 Acute kidney failure with tubular necrosis; I50.33 Acute on chronic diastolic (congestive) heart failure; G92 Toxic encephalopathy; J15.6 Pneumonia due to other Gram-negative bacteria; E11.22 Type 2 diabetes mellitus with diabetic chronic kidney disease; D69.6 Thrombocytopenia, unspecified; D62 Acute posthemorrhagic anemia; I13.0 Hypertensive heart and chronic kidney disease with heart failure and stage 1 through stage 4 chronic kidney disease, or unspecified chronic kidney disease; N18.3 Chronic kidney disease, stage 3 (moderate); I27.20 Pulmonary hypertension, unspecified; E66.01 Morbid (severe) obesity due to excess calories; I85.10 Secondary esophageal varices without bleeding; E87.1 Hypo-osmolality and hyponatremia; R65.20 Severe sepsis without septic shock; F03.90 Unspecified dementia, unspecified severity, without behavioral disturbance, psychotic disturbance, mood disturbance, and anxiety; N39.0 Urinary tract infection, site not specified; I70.0 Atherosclerosis of aorta; E87.6 Hypokalemia; Z90.710 Acquired absence of both cervix and uterus; Z90.49 Acquired absence of other specified parts of digestive tract; Z86.73 Personal history of transient ischemic attack (TIA), and cerebral infarction without residual deficits; Z83.3 Family history of diabetes mellitus; Z82.49 Family history of ischemic heart disease and other diseases of the circulatory system; Z20.828 Contact with and (suspected) exposure to other viral communicable diseases; Z79.4 Long term (current) use of insulin; M51.36 Other intervertebral disc degeneration, lumbar region; K76.6 Portal hypertension; I86.4 Gastric varices; I48.20 Chronic atrial fibrillation, unspecified; F32.9 Major depressive disorder, single episode, unspecified; W18.39XA Other fall on same level, initial encounter; Z91.81 History of falling; Y93.89 Activity, other specified; Y92.89 Other specified places as the place of occurrence of the external cause; Y99.8 Other external cause status; Z68.41 Body mass index [BMI] 40.0-44.9, adult; K74.60 Unspecified cirrhosis of liver; I07.1 Rheumatic tricuspid insufficiency
CPT/HCPCS: 36415; 70450; 71045; 71250; 72125; 74176; 78452; 80048; 80053; 80307; 80320; 81001; 82728; 82962; 83036; 83605; 83615; 83735; 83880; 84443; 84484; 85025; 85610; 85730; 86141; 87040; 87070; 87077; 87086; 87088; 87186; 87804; 87880; 93005; 93017; 93306; 96360; 97163; 99152; 99153; C9113; G0378; J0153; J0696; J1815; J2185; J2250

== ENCOUNTER 2022-03-09 15:19 | Inpatient (IN) | payer OTHER, MEDICAID ==
[~2022-03-09] VITALS: Ht 162.6 cm; Wt 110.7 kg
[~2022-03-09 15:19] MED LIST changes: -AMIT100T2 OR; +AMIT1TAB41 OR
[2022-03-09 16:26] LABS: Eosinophils # (auto) 0 10 ^3/uL (0-0.8); Hemoglobin 9.9 g/dL (12.2-16.2); Lymphocytes # (auto) 0.5 10 ^3/uL (0.4-5.4); Monocytes # (auto) 0.5 10 ^3/uL (0-1.3); Nucleated Red Blood Cells % 0.1 %; White Blood Cell 7.8 10^3/uL (4.4-10.8)
[2022-03-09 16:28] LABS: Basophils # (auto) 0 10 ^3/uL (0-0.2); Basophils % (auto) 0.6 % (0.0-2.0); Eosinophils % (auto) 0.1 % (0.0-7.0); Hematocrit 29.4 % (36.0-46.0); Mean Corpuscular Hgb Conc. 33.6 g/dL (32.0-36.0); Mean Corpuscular Volume 89.4 fL (80.0-100.0); Monocytes % (auto) 6.5 % (0.0-12.0); Neutrophils # (auto) 6.7 10 ^3/uL (1.6-8.6); Neutrophils % (auto) 85.8 % (37.0-80.0); Red Blood Cells 3.29 10^6/uL (4.0-5.20); Red Cell Distribution Width 16.4 % (11.8-14.3)
[2022-03-09 16:48] LABS: Albumin 2.6 g/dL (3.4-5.0); BUN/Creatinine Ratio 28.9; Calcium 7.3 mg/dL (8.5-10.1); Potassium 3.4 mmol/L (3.5-5.1)
[2022-03-09 16:50] LABS: Bilirubin, Total 2.1 mg/dL (0.2-1.0); Total Protein 6.7 g/dL (6.4-8.2)
[2022-03-09 16:52] LABS: INR 1.34 (0.9-1.15); Partial Thromboplastin Time 35.1 sec (24.6-33.4)
[2022-03-09] MEDS ORDERED: ENOXAPARIN SOD 100 MG/1 ML SYRINGE SC ONE (17:45)
[2022-03-09] MEDS ORDERED: IOHEXOL 350 MG/ML 100ML IJ ONE (18:36)
[2022-03-09] MEDS: SODIUM CHLORIDE 0.9% 1,000 ML IV SCH (19:15)
[2022-03-09] MEDS ORDERED: MORPHINE SULFATE INJ 2 MG/ml SYRG IV PRN (19:15)
[2022-03-09] MEDS ORDERED: NITROGLYCERIN 0.4 MG SL TAB SL PRN (19:15)
[2022-03-09] MEDS ORDERED: ONDANSETRON HCL 4 MG/2 ML VIAL IV PRN (19:15)
[2022-03-09] MEDS ORDERED: IPRATROPIUM BROM 0.5 MG/2.5ML INH SOL NEB PRN (21:45)
[2022-03-09 21:58] VITALS: BP 108/41
[2022-03-09] MEDS: LACTULOSE 20Gm/30ML SOLN PO SCH (23:03)
[2022-03-09 23:22] VITALS: BP 113/42
[2022-03-10 05:00] VITALS: BP 127/62
[2022-03-10 06:32] LABS: Urine Bacteria NONE SEEN /hpf (None Seen); Urine Blood 3+ /uL (Negative); Urine WBC 49 /hpf (0 - 5)
[2022-03-10 06:36] LABS: Urine Specific Gravity > 1.050 (1.001-1.035)
[2022-03-10 07:21] LABS: Basophils # (auto) 0 10 ^3/uL (0-0.2); Basophils % (auto) 0.1 % (0.0-2.0); Eosinophils # (auto) 0 10 ^3/uL (0-0.8); Eosinophils % (auto) 0.4 % (0.0-7.0); Hematocrit 27.8 % (36.0-46.0); Hemoglobin 9.6 g/dL (12.2-16.2); Lymphocytes # (auto) 0.5 10 ^3/uL (0.4-5.4); Lymphocytes % (auto) 9.2 % (10.0-50.0); Mean Corpuscular Hemoglobin 30.3 pg (28.0-32.0); Mean Corpuscular Hgb Conc. 34.4 g/dL (32.0-36.0); Monocytes # (auto) 0.4 10 ^3/uL (0-1.3); Monocytes % (auto) 6.8 % (0.0-12.0); Neutrophils # (auto) 4.7 10 ^3/uL (1.6-8.6); Neutrophils % (auto) 83.5 % (37.0-80.0); Nucleated Red Blood Cells % 0.1 %; Red Blood Cells 3.16 10^6/uL (4.0-5.20); Red Cell Distribution Width 16.4 % (11.8-14.3); White Blood Cell 5.7 10^3/uL (4.4-10.8)
[2022-03-10 07:30] LABS: INR 1.35 (0.9-1.15); Partial Thromboplastin Time 44.1 sec (24.6-33.4)
[2022-03-10 07:37] LABS: Potassium 3.1 mmol/L (3.5-5.1)
[2022-03-10 07:44] LABS: Albumin 2.3 g/dL (3.4-5.0); BUN/Creatinine Ratio 30.4; Bilirubin, Total 1.9 mg/dL (0.2-1.0); Calcium 7.3 mg/dL (8.5-10.1); Total Protein 6.5 g/dL (6.4-8.2)
[2022-03-10 09:00] VITALS: BP 108/76
[2022-03-10] MEDS: SODIUM CHLORIDE 0.9% 1,000 ML IV SCH (09:33)
[2022-03-10] MEDS: AZITHROMYCIN 500MG/ 250ML 250 ML IV SCH (09:56)
[2022-03-10] MEDS: LACTULOSE 20Gm/30ML SOLN PO SCH ×2 (09:56→22:25)
[2022-03-10] MEDS ORDERED: DexAMETHasone SOD PHOS 10MG/1ML VIAL INJ IV SCH (10:00)
[2022-03-10] MEDS ORDERED: DEXTROSE (50%) 50ML SYRG IV PRN (10:30)
[2022-03-10] MEDS ORDERED: PANTOPRAZOLE 40 MG TAB PO ONE (10:30)
[2022-03-10] MEDS ORDERED: cefTRIAXone 1GM/50ML D5W 50 ML IV ONE (10:30)
[2022-03-10] MEDS ORDERED: POTASSIUM CHL 20 Meq TABLET PO ONE ×2 (10:30→18:45)
[2022-03-10] MEDS ORDERED: ALBUTEROL SULF 2.5 MG/0.5ML(0.5%) NEB SOLN NEB SCH (12:00)
[2022-03-10] MEDS ORDERED: IPRATROPIUM BROM 0.5 MG/2.5ML INH SOL NEB SCH (12:00)
[2022-03-10 12:30] VITALS: BP 120/82
[2022-03-10] MEDS: ACCU-CHEK COMFORT CURVE STRIP VI SCH ×2 (12:31→17:13)
[2022-03-10] MEDS: InsuLIN REG 1unit/0.01ml Soln (100units/ml) SC SCH ×2 (12:45→18:08)
[2022-03-10 16:26] VITALS: BP 117/64
[2022-03-10] MEDS ORDERED: SODIUM BICARBONATE 650 MG TAB PO ONE (18:45)
[2022-03-10] MEDS: SILDENAFIL CITRATE 20 MG TAB PO SCH (20:44)
[2022-03-10] MEDS: ALBUTEROL SULF HFA 90MCG INH 200DOSE IN PRN (21:40)
[2022-03-10] MEDS: BUDESONIDE (INHALATION) 180 MCG IH IN SCH (21:40)
[2022-03-10 22:00] VITALS: BP 117/53
[2022-03-10] MEDS: SODIUM BICARBONATE 650 MG TAB PO SCH (22:00)
[2022-03-11] MEDS: ACCU-CHEK COMFORT CURVE STRIP VI SCH ×4 (02:10→17:56)
[2022-03-11] MEDS: InsuLIN REG 1unit/0.01ml Soln (100units/ml) SC SCH ×4 (02:18→17:54)
[2022-03-11] MEDS ORDERED: VANCOMYCIN PER PHARMACY 0 MG IV SCH (03:00)
[2022-03-11] MEDS ORDERED: VANCOMYCIN 1GM/250ML 250 ML IV ONE ×2 (03:30→04:00)
[2022-03-11 05:00] VITALS: BP 138/49
[2022-03-11] MEDS: SODIUM BICARBONATE 650 MG TAB PO SCH ×3 (05:25→21:29)
[2022-03-11 06:24] LABS: Potassium 4.4 mmol/L (3.5-5.1)
[2022-03-11 06:25] LABS: BUN/Creatinine Ratio 32.9; Calcium 7.3 mg/dL (8.5-10.1)
[2022-03-11 06:32] LABS: Basophils # (auto) 0 10 ^3/uL (0-0.2); Eosinophils # (auto) 0 10 ^3/uL (0-0.8); Eosinophils % (auto) 0.1 % (0.0-7.0); Hemoglobin 9.5 g/dL (12.2-16.2); Lymphocytes # (auto) 0.3 10 ^3/uL (0.4-5.4); Monocytes # (auto) 0.2 10 ^3/uL (0-1.3); Neutrophils # (auto) 2.3 10 ^3/uL (1.6-8.6); White Blood Cell 2.7 10^3/uL (4.4-10.8)
[2022-03-11 06:34] LABS: Basophils % (auto) 0.2 % (0.0-2.0); Hematocrit 28.9 % (36.0-46.0); Lymphocytes % (auto) 9.7 % (10.0-50.0); Mean Corpuscular Hemoglobin 29.8 pg (28.0-32.0); Mean Corpuscular Hgb Conc. 32.8 g/dL (32.0-36.0); Mean Corpuscular Volume 90.9 fL (80.0-100.0); Monocytes % (auto) 6.8 % (0.0-12.0); Neutrophils % (auto) 83.2 % (37.0-80.0); Nucleated Red Blood Cells % 0.1 %; Red Blood Cells 3.18 10^6/uL (4.0-5.20); Red Cell Distribution Width 16.5 % (11.8-14.3)
[2022-03-11 08:00] VITALS: BP 106/55
[2022-03-11 09:00] VITALS: BP 126/48
[2022-03-11] MEDS ORDERED: cefTRIAXone 1GM/50ML D5W 50 ML IV SCH (09:00)
[2022-03-11] MEDS ORDERED: SODIUM BICARBONATE 50ML VIAL 50 ML in SOD CHL 0.45% 1,000 ML IV SCH ×2 (09:45→20:30)
[2022-03-11] MEDS: SILDENAFIL CITRATE 20 MG TAB PO SCH ×3 (09:51→20:00)
[2022-03-11] MEDS ORDERED: PANTOPRAZOLE 40 MG TAB PO SCH (10:00)
[2022-03-11] MEDS: BUDESONIDE (INHALATION) 180 MCG IH IN SCH ×2 (10:00→22:23)
[2022-03-11] MEDS: AZITHROMYCIN 500MG/ 250ML 250 ML IV SCH (11:04)
[2022-03-11 13:00] VITALS: BP 106/55
[2022-03-11 17:00] VITALS: BP 105/33
[2022-03-11] MEDS: ALBUTEROL SULF HFA 90MCG INH 200DOSE IN PRN (19:13)
[2022-03-11] MEDS: SODIUM BICARBONATE 50ML VIAL 75 ML in SOD CHL 0.45% 1,000 ML IV SCH (21:28)
[2022-03-11 21:34] VITALS: BP 110/34
[2022-03-12] VITALS (56 sets, daily range): BP systolic 85–130; BP diastolic 33–97
[2022-03-12] MEDS ORDERED: VANCOMYCIN 1GM/250ML 250 ML IV SCH
[2022-03-12] MEDS: ACCU-CHEK COMFORT CURVE STRIP VI SCH ×5 (00:08→23:56)
[2022-03-12] MEDS: InsuLIN REG 1unit/0.01ml Soln (100units/ml) SC SCH ×5 (00:10→23:59)
[2022-03-12 07:37] LABS: Potassium 4.1 mmol/L (3.5-5.1)
[2022-03-12 07:48] LABS: Albumin 2.7 g/dL (3.4-5.0); BUN/Creatinine Ratio 29.4; Calcium 7.8 mg/dL (8.5-10.1); Phosphorus 4.5 mg/dL (2.5-4.90)
[2022-03-12] MEDS ORDERED: NOREPINEPHRINE 8 MG/250ML KIT 250 ML IV ONE (09:37)
[2022-03-12] MEDS ORDERED: PROPOFOL 100 ML IV ONE (09:37)
[2022-03-12] MEDS ORDERED: fentaNYL Drip 2500mCg/250mlNS 250 ML IV ONE (09:37)
[2022-03-12] MEDS ORDERED: MIDAZOLAM DRIP 50 mg/50mL 50 ML IV ONE ×2 (09:37→11:00)
[2022-03-12] MEDS ORDERED: PIPERACILLIN-TAZOB 2.25GM 50 ML IV ONE (09:45)
[2022-03-12] MEDS ORDERED: PANTOPRAZOLE 40 MG/10 ML VIAL INJ IV ONE (09:45)
[2022-03-12] MEDS: NOREPINEPHRINE 8 MG/250ML KIT 250 ML IV SCH ×2 (09:55→16:47)
[2022-03-12] MEDS: PANTOPRAZOLE 40 MG/10 ML VIAL INJ IV SCH (10:00)
[2022-03-12] MEDS: SODIUM BICARBONATE 650 MG TAB PO SCH ×2 (10:00→22:03)
[2022-03-12] MEDS ORDERED: ROCURONIUM 10MG/ML 10ML VIAL IV ONE ×2 (10:15)
[2022-03-12 10:21] LABS: Basophils # (auto) 0 10 ^3/uL (0-0.2); Basophils % (auto) 0.2 % (0.0-2.0); Eosinophils # (auto) 0 10 ^3/uL (0-0.8); Hematocrit 32.5 % (36.0-46.0); Hemoglobin 10.7 g/dL (12.2-16.2); Lymphocytes # (auto) 0.6 10 ^3/uL (0.4-5.4); Lymphocytes % (auto) 3.1 % (10.0-50.0); Mean Corpuscular Hemoglobin 29.5 pg (28.0-32.0); Mean Corpuscular Volume 89.4 fL (80.0-100.0); Monocytes # (auto) 0.8 10 ^3/uL (0-1.3); Monocytes % (auto) 4.5 % (0.0-12.0); Neutrophils # (auto) 16.6 10 ^3/uL (1.6-8.6); Neutrophils % (auto) 92.2 % (37.0-80.0); Red Blood Cells 3.63 10^6/uL (4.0-5.20); Red Cell Distribution Width 16.2 % (11.8-14.3)
[2022-03-12] MEDS: PROPOFOL 100 ML IV SCH ×4 (11:00→20:53)
[2022-03-12] MEDS: MIDAZOLAM DRIP 50 mg/50mL 50 ML IV SCH ×4 (11:00→21:23)
[2022-03-12] MEDS: PIPERACILLIN-TAZOB 3.375GM 100 ML IV SCH ×2 (11:59→17:20)
[2022-03-12] MEDS: SODIUM BICARBONATE 50ML VIAL 75 ML in SOD CHL 0.45% 1,000 ML IV SCH (12:30)
[2022-03-12] MEDS: fentaNYL Drip 2500mCg/250mlNS 250 ML IV SCH ×2 (12:42→19:10)
[2022-03-12] MEDS ORDERED: SODIUM BICARBONATE 8.4 % INJ 50ML VIAL IV ONE (13:00)
[2022-03-12] MEDS: SODIUM BICARBONATE 50ML VIAL 150 ML in D5W 5% 1,000 ML IV SCH (13:55)
[2022-03-12 15:45] LABS: Urine Bacteria NONE SEEN /hpf (None Seen); Urine Blood 3+ /uL (Negative); Urine Mucus FEW (None Seen); Urine Specific Gravity 1.022 (1.001-1.035); Urine WBC 34 /hpf (0 - 5); Urine WBC Clumps PRESENT /hpf (None Seen)
[2022-03-12 15:57] LABS: Protein, Urine 388.8 mg/dL (0.0-11.9)
[2022-03-12] MEDS: BUDESONIDE (INHALATION) 0.5 MG/2 ML NEB NEB SCH (22:07)
[2022-03-12] MEDS: ALBUTEROL SULF 2.5 MG/0.5ML(0.5%) NEB SOLN NEB PRN (22:07)
[2022-03-13] VITALS (106 sets, daily range): BP systolic 93–124; BP diastolic 41–59
[2022-03-13] MEDS: NOREPINEPHRINE 8 MG/250ML KIT 250 ML IV SCH ×2 (00:06→10:33)
[2022-03-13] MEDS: PROPOFOL 100 ML IV SCH ×7 (00:06→23:14)
[2022-03-13] MEDS: PIPERACILLIN-TAZOB 3.375GM 100 ML IV SCH ×5 (00:07→23:13)
[2022-03-13] MEDS: MIDAZOLAM DRIP 50 mg/50mL 50 ML IV SCH ×4 (01:23→23:14)
[2022-03-13] MEDS: SODIUM BICARBONATE 50ML VIAL 150 ML in D5W 5% 1,000 ML IV SCH ×2 (01:23→09:00)
[2022-03-13 03:44] LABS: Hematocrit 34.3 % (36.0-46.0); Hemoglobin 11.5 g/dL (12.2-16.2)
[2022-03-13 03:48] LABS: Mean Corpuscular Hemoglobin 29.7 pg (28.0-32.0); Mean Corpuscular Hgb Conc. 33.4 g/dL (32.0-36.0); Mean Corpuscular Volume 88.7 fL (80.0-100.0); Red Blood Cells 3.86 10^6/uL (4.0-5.20); Red Cell Distribution Width 16.8 % (11.8-14.3); White Blood Cell 25.5 10^3/uL (4.4-10.8)
[2022-03-13 03:54] LABS: Basophils % (manual) 0 (0.0-2.0); Blast Cells 0; Eosinophils % (manual) 0 (0-7); Metamyelocytes % 0; Myelocytes % 0; Promyelocytes % 0; Reactive Lymphocytes 0
[2022-03-13 04:01] LABS: BUN/Creatinine Ratio 24.2; Calcium 6.9 mg/dL (8.5-10.1); Potassium 4.6 mmol/L (3.5-5.1)
[2022-03-13 04:03] LABS: Bilirubin, Total 2.2 mg/dL (0.2-1.0); Total Protein 6.4 g/dL (6.4-8.2)
[2022-03-13 05:07] LABS: Band Neutrophils % (manual) 14; Lymphocytes % (manual) 7 (10.0-50.0); Monocytes % (manual) 3 (0-12)
[2022-03-13] MEDS: ACCU-CHEK COMFORT CURVE STRIP VI SCH ×3 (05:31→18:17)
[2022-03-13] MEDS: InsuLIN REG 1unit/0.01ml Soln (100units/ml) SC SCH ×3 (05:45→18:13)
[2022-03-13] MEDS: fentaNYL Drip 2500mCg/250mlNS 250 ML IV SCH ×2 (08:14→23:16)
[2022-03-13] MEDS: PANTOPRAZOLE 40 MG/10 ML VIAL INJ IV SCH (09:38)
[2022-03-13] MEDS: SODIUM BICARBONATE 650 MG TAB PO SCH (09:39)
[2022-03-13] MEDS: DOPamine 1600MCG/ML D5W 250 ML IV SCH (11:05)
[2022-03-13] MEDS: BUDESONIDE (INHALATION) 0.5 MG/2 ML NEB NEB SCH ×2 (13:23→19:18)
[2022-03-13] MEDS: ALBUTEROL SULF 2.5 MG/0.5ML(0.5%) NEB SOLN NEB PRN ×2 (13:23→19:18)
[2022-03-14] VITALS (66 sets, daily range): BP systolic 85–126; BP diastolic 22–56
[2022-03-14] MEDS: ACCU-CHEK COMFORT CURVE STRIP VI SCH ×4 (01:40→17:58)
[2022-03-14] MEDS: InsuLIN REG 1unit/0.01ml Soln (100units/ml) SC SCH ×4 (02:00→17:58)
[2022-03-14] MEDS: MIDAZOLAM DRIP 50 mg/50mL 50 ML IV SCH ×3 (04:25→15:25)
[2022-03-14 08:25] LABS: Hematocrit 31.4 % (36.0-46.0); Hemoglobin 10.6 g/dL (12.2-16.2); Mean Corpuscular Hemoglobin 29.6 pg (28.0-32.0); Mean Corpuscular Hgb Conc. 33.7 g/dL (32.0-36.0); Mean Corpuscular Volume 87.8 fL (80.0-100.0); Red Blood Cells 3.58 10^6/uL (4.0-5.20)
[2022-03-14 08:27] LABS: Red Cell Distribution Width 16.3 % (11.8-14.3); White Blood Cell 8.8 10^3/uL (4.4-10.8)
[2022-03-14 08:36] LABS: Albumin 1.8 g/dL (3.4-5.0); Calcium 6.5 mg/dL (8.5-10.1); Potassium 3.3 mmol/L (3.5-5.1)
[2022-03-14 08:40] LABS: BUN/Creatinine Ratio 22.4; Bilirubin, Total 2.6 mg/dL (0.2-1.0); Total Protein 5.9 g/dL (6.4-8.2)
[2022-03-14 08:44] LABS: Basophils % (manual) 0 (0.0-2.0); Blast Cells 0; Metamyelocytes % 0; Myelocytes % 0; Promyelocytes % 0; Reactive Lymphocytes 0
[2022-03-14] MEDS: DOPamine 1600MCG/ML D5W 250 ML IV SCH (09:00)
[2022-03-14 09:10] LABS: Band Neutrophils % (manual) 2; Eosinophils % (manual) 4 (0-7); Lymphocytes % (manual) 5 (10.0-50.0); Monocytes % (manual) 1 (0-12)
[2022-03-14] MEDS: LINEZOLID 600MG/300ML 300 ML IV SCH ×2 (10:00→22:00)
[2022-03-14] MEDS: PANTOPRAZOLE 40 MG/10 ML VIAL INJ IV SCH (10:30)
[2022-03-14] MEDS: SODIUM BICARBONATE 50ML VIAL 150 ML in D5W 5% 1,000 ML IV SCH ×3 (10:44→17:57)
[2022-03-14] MEDS: ALBUTEROL SULF 2.5 MG/0.5ML(0.5%) NEB SOLN NEB PRN ×2 (11:03→21:18)
[2022-03-14] MEDS: BUDESONIDE (INHALATION) 0.5 MG/2 ML NEB NEB SCH ×2 (11:03→21:18)
[2022-03-14] MEDS: PIPERACILLIN-TAZOB 3.375GM 100 ML IV SCH ×2 (12:00→17:57)
[2022-03-14 12:02] LABS: Basophils # (auto) 0 10 ^3/uL (0-0.2); Basophils % (auto) 0.4 % (0.0-2.0); Eosinophils # (auto) 0.2 10 ^3/uL (0-0.8); Eosinophils % (auto) 2.7 % (0.0-7.0); Hematocrit 28.6 % (36.0-46.0); Hemoglobin 9.8 g/dL (12.2-16.2); Lymphocytes # (auto) 0.5 10 ^3/uL (0.4-5.4); Lymphocytes % (auto) 5.8 % (10.0-50.0); Mean Corpuscular Hemoglobin 29.6 pg (28.0-32.0); Mean Corpuscular Hgb Conc. 34.4 g/dL (32.0-36.0); Mean Corpuscular Volume 86.1 fL (80.0-100.0); Monocytes # (auto) 0.3 10 ^3/uL (0-1.3); Monocytes % (auto) 3.6 % (0.0-12.0); Neutrophils # (auto) 7.9 10 ^3/uL (1.6-8.6); Neutrophils % (auto) 87.5 % (37.0-80.0); Nucleated Red Blood Cells % 0.5 %; Red Blood Cells 3.32 10^6/uL (4.0-5.20); Red Cell Distribution Width 16.3 % (11.8-14.3)
[2022-03-14] MEDS ORDERED: POTASSIUM CHL 20MEQ/100ML 100 ML IV ONE (12:15)
[2022-03-14] MEDS ORDERED: AMIODARONE HCL 150 MG in D5W 5% 100 ML IV ONE (13:00)
[2022-03-14] MEDS ORDERED: AMIODARONE 450mg/250ml AE 250 ML IV SCH (13:15)
[2022-03-14] MEDS: NOREPINEPHRINE 8 MG/250ML KIT 250 ML IV SCH ×2 (13:53→20:33)
[2022-03-14] MEDS: PROPOFOL 100 ML IV SCH (13:54)
[2022-03-14] MEDS: fentaNYL Drip 2500mCg/250mlNS 250 ML IV SCH (18:03)
[2022-03-14] MEDS: AMIODARONE 450mg/250ml AE 250 ML IV SCH ×2 (19:29→23:28)
[2022-03-14] MEDS: FUROSEMIDE 40 MG/4 ML VIAL IV SCH (19:56)
[2022-03-15] VITALS (17 sets, daily range): BP systolic 52–117; BP diastolic 26–48
[2022-03-15] MEDS: InsuLIN REG 1unit/0.01ml Soln (100units/ml) SC SCH (01:15)
[2022-03-15] MEDS: ACCU-CHEK COMFORT CURVE STRIP VI SCH ×2 (01:15→06:00)
[2022-03-15] MEDS: PIPERACILLIN-TAZOB 3.375GM 100 ML IV SCH ×3 (01:15→12:00)
[2022-03-15] MEDS ORDERED: DEXTROSE (50%) 50ML SYRG IV PRN ×2 (03:15→12:15)
[2022-03-15] MEDS ORDERED: InsuLIN R (HUMAN) 100 UNITS in SODIUM CHL 0.9% 99 ML IV SCH (03:15)
[2022-03-15] MEDS: FUROSEMIDE 40 MG/4 ML VIAL IV SCH (06:00)
[2022-03-15] MEDS: ALBUTEROL SULF 2.5 MG/0.5ML(0.5%) NEB SOLN NEB PRN ×2 (06:19→18:51)
[2022-03-15] MEDS: BUDESONIDE (INHALATION) 0.5 MG/2 ML NEB NEB SCH ×2 (06:20→18:51)
[2022-03-15 07:18] LABS: Hematocrit 30.2 % (36.0-46.0); Hemoglobin 9.1 g/dL (12.2-16.2); Mean Corpuscular Hemoglobin 26.3 pg (28.0-32.0); Mean Corpuscular Hgb Conc. 30.2 g/dL (32.0-36.0); Red Blood Cells 3.47 10^6/uL (4.0-5.20); Red Cell Distribution Width 16.3 % (11.8-14.3); White Blood Cell 10.8 10^3/uL (4.4-10.8)
[2022-03-15 07:21] LABS: Basophils % (manual) 0 (0.0-2.0); Blast Cells 0; Eosinophils % (manual) 0 (0-7); Myelocytes % 0; Promyelocytes % 0; Reactive Lymphocytes 0
[2022-03-15 07:29] LABS: INR 1.41 (0.9-1.15)
[2022-03-15 07:31] LABS: BUN/Creatinine Ratio 21.4; Calcium 6.3 mg/dL (8.5-10.1); Potassium 3.2 mmol/L (3.5-5.1)
[2022-03-15] MEDS: MIDAZOLAM DRIP 50 mg/50mL 50 ML IV SCH (08:17)
[2022-03-15 08:25] LABS: Band Neutrophils % (manual) 3; Lymphocytes % (manual) 6 (10.0-50.0); Metamyelocytes % 2; Monocytes % (manual) 5 (0-12)
[2022-03-15] MEDS: PANTOPRAZOLE 40 MG/10 ML VIAL INJ IV SCH (09:58)
[2022-03-15] MEDS ORDERED: INSULIN LANTUS (GLARGINE) 1 /0.01ml (100units/ml) SC SCH ×2 (10:00→22:00)
[2022-03-15] MEDS ORDERED: InsuLIN REG 1unit/0.01ml Soln (100units/ml) SC SCH ×4 (12:00→18:00)
[2022-03-15] MEDS ORDERED: ACCU-CHEK COMFORT CURVE STRIP VI SCH ×2 (12:00→18:00)
[2022-03-15] MEDS ORDERED: FUROSEMIDE INJECTION 100 MG in D5W 5% 100 ML IV SCH (12:15)
[2022-03-15] MEDS ORDERED: MAGNESIUM SULFATE 1GM/100ML 100 ML IV ONE (12:15)
[2022-03-15] MEDS ORDERED: POTASSIUM CHL 20MEQ/100ML 100 ML IV ONE ×3 (12:15→14:30)
[2022-03-15 12:33] LABS: Basophils # (auto) 0 10 ^3/uL (0-0.2); Eosinophils # (auto) 0.4 10 ^3/uL (0-0.8); Nucleated Red Blood Cells % 0.3 %; White Blood Cell 14.5 10^3/uL (4.4-10.8)
[2022-03-15 12:35] LABS: Basophils % (auto) 0.2 % (0.0-2.0); Eosinophils % (auto) 2.6 % (0.0-7.0); Hematocrit 31.5 % (36.0-46.0); Hemoglobin 10.5 g/dL (12.2-16.2); Lymphocytes # (auto) 1.2 10 ^3/uL (0.4-5.4); Lymphocytes % (auto) 8.3 % (10.0-50.0); Mean Corpuscular Hemoglobin 29.2 pg (28.0-32.0); Mean Corpuscular Hgb Conc. 33.2 g/dL (32.0-36.0); Mean Corpuscular Volume 87.9 fL (80.0-100.0); Monocytes # (auto) 0.5 10 ^3/uL (0-1.3); Monocytes % (auto) 3.2 % (0.0-12.0); Neutrophils # (auto) 12.4 10 ^3/uL (1.6-8.6); Neutrophils % (auto) 85.7 % (37.0-80.0); Red Blood Cells 3.58 10^6/uL (4.0-5.20); Red Cell Distribution Width 16.3 % (11.8-14.3)
[2022-03-15] MEDS ORDERED: PHENYLEPHRINE IV 250 ML IV PRN (12:45)
[2022-03-15 12:54] LABS: Potassium 3.3 mmol/L (3.5-5.1)
[2022-03-15 12:57] LABS: BUN/Creatinine Ratio 22.6; Calcium 6.4 mg/dL (8.5-10.1)
[2022-03-15] MEDS ORDERED: EPINEPHrine HCL 250 ML IV ONE (14:31)
[2022-03-15] MEDS ORDERED: EPINEPHrine HCL 250 ML IV SCH (14:45)
[2022-03-15] MEDS ORDERED: NOREPINEPHRINE BITARTRATE 32 MG in SODIUM CHL 0.9% 218 ML IV SCH (15:30)
[2022-03-15] MEDS ORDERED: VASOPRESSIN 50 UNITS in D5W 5% 247.5 ML IV SCH (15:30)
[2022-03-15] MEDS ORDERED: EPINEPHrine HCL INJECTION 16 MG in D5W 5% 234 ML IV SCH (15:30)
[2022-03-15] MEDS ORDERED: PHENYLEPHRINE INJ 80 MG in SODIUM CHL 0.9% 242 ML IV SCH (15:30)
[2022-03-15] MEDS ORDERED: CEFEPIME 2 GM in SODIUM CHL 0.9% 50 ML IV SCH (22:00)
[2022-03-15] MEDS ORDERED: PANTOPRAZOLE 40 MG/10 ML VIAL INJ IV SCH (22:00)
[2022-03-16] MEDS ORDERED: SODIUM BICARBONATE 8.4% INJ 50ML SYRINGE IV ONE (06:29)
[2022-03-16] MEDS ORDERED: EPINEPHrine HCL 1 MG/10 ML SYRG IV ONE (06:29)
== END 2022-03-16 06:30 | DRG 208 ==
LOC: ER 15:19 → EDUNIT# 15:19 → EDBD 15:19 → TELE 19:20 → TELE-CENTR 22:32 → ICU WEST 03-12 10:17
PROVIDERS: ADMIT Nurse Practitioner Family; ATTEND Internal Medicine
PROC: 5A1945Z Respiratory Ventilation, 24-96 Consecutive Hours (ICD-10-PCS; principal; 2022-03-12)
PROC: 0BH17EZ Insertion of Endotracheal Airway into Trachea, Via Natural or Artificial Opening (ICD-10-PCS; 2022-03-12)
PROC: 02HV33Z Insertion of Infusion Device into Superior Vena Cava, Percutaneous Approach (ICD-10-PCS; 2022-03-12)
PROC: 5A12012 Performance of Cardiac Output, Single, Manual (ICD-10-PCS; 2022-03-15)
DX: U07.1 COVID-19 (principal); I50.41 Acute combined systolic (congestive) and diastolic (congestive) heart failure; R65.21 Severe sepsis with septic shock; J12.82 Pneumonia due to coronavirus disease 2019; J96.21 Acute and chronic respiratory failure with hypoxia; A41.89 Other specified sepsis; D61.818 Other pancytopenia; E87.4 Mixed disorder of acid-base balance; I13.0 Hypertensive heart and chronic kidney disease with heart failure and stage 1 through stage 4 chronic kidney disease, or unspecified chronic kidney disease; I85.10 Secondary esophageal varices without bleeding; N39.0 Urinary tract infection, site not specified; R18.8 Other ascites; N17.9 Acute kidney failure, unspecified; I47.1 Supraventricular tachycardia; J44.0 Chronic obstructive pulmonary disease with (acute) lower respiratory infection; Z68.41 Body mass index [BMI] 40.0-44.9, adult; Z66 Do not resuscitate; I46.9 Cardiac arrest, cause unspecified; B19.20 Unspecified viral hepatitis C without hepatic coma; E11.22 Type 2 diabetes mellitus with diabetic chronic kidney disease; E66.9 Obesity, unspecified; E87.6 Hypokalemia; I25.10 Atherosclerotic heart disease of native coronary artery without angina pectoris; I27.29 Other secondary pulmonary hypertension; I86.4 Gastric varices; K72.90 Hepatic failure, unspecified without coma; K74.60 Unspecified cirrhosis of liver; N18.30 Chronic kidney disease, stage 3 unspecified; D69.59 Other secondary thrombocytopenia; D73.1 Hypersplenism; Z79.02 Long term (current) use of antithrombotics/antiplatelets; Z79.899 Other long term (current) drug therapy; Z90.49 Acquired absence of other specified parts of digestive tract; Z79.84 Long term (current) use of oral hypoglycemic drugs; B96.20 Unspecified Escherichia coli [E. coli] as the cause of diseases classified elsewhere
CPT/HCPCS: 36415; 36600; 71045; 71275; 76775; 80048; 80053; 80069; 80202; 81001; 82140; 82550; 82570; 82728; 82805; 82962; 83036; 83605; 83615; 83735; 83880; 84156; 84300; 84443; 84484; 85007; 85025; 85027; 85379; 85610; 85730; 86141; 87040; 87070; 87077; 87081; 87086; 87088; 87186; 87205; 92950; 93005; 93306; 94002; 94003; 94640; 96372; 97110; 97116; 97530; C9113; G0378; J0171; J0696; J1100; J1815; J2250; J2543; J2704; J3480; J7060